=== PATIENT | male | born 2000 | race African-American/Black ===

== ENCOUNTER 2024-01-07 21:43 | Emergency (ER) | payer MEDICAID ==
[~2024-01-07] VITALS: Ht 177.8 cm; Wt 109.0 kg
[2024-01-07 21:46] VITALS: BP 122/77; PULSE 93; TEMP 98.4; O2SAT 100
[2024-01-07 23:19] VITALS: RESP 16
== END 2024-01-07 23:24 | disposition home or self-care (01) ==
LOC: ER 21:43
DX: F12.10 Cannabis abuse, uncomplicated (principal); R07.0 Pain in throat; F41.9 Anxiety disorder, unspecified; J45.909 Unspecified asthma, uncomplicated
CPT/HCPCS: 71045; 99283